=== PATIENT | female | born 1960 | race Caucasian/White ===

== ENCOUNTER 2024-08-12 14:45 | Outpatient (CLI) | payer BC | END 2024-08-12 23:59 | disposition home or self-care (01) | LOC: RAD 14:45 | PROVIDERS: ATTEND Student in an Organized Health Care Education/Training Program | DX: M43.16 Spondylolisthesis, lumbar region (principal); M51.369 Other intervertebral disc degeneration, lumbar region without mention of lumbar back pain or lower extremity pain; G89.29 Other chronic pain; M85.80 Other specified disorders of bone density and structure, unspecified site; M54.50 Low back pain, unspecified | CPT/HCPCS: 72100 ==